=== PATIENT | female | born 1940 | race Caucasian/White ===

== ENCOUNTER 2017-08-11 14:50 | Emergency (ER) | payer OTHER, BC ==
[2017-08-11 15:05] VITALS: BMI 24.1
--- NOTE | 2017-08-11 15:34 | PDOC ---
Attending Attestation - Resident Resident Name: Edward Flower - ED Attending Attestation I have performed the following: I have examined & evaluated the patient, The case was reviewed & discussed with the resident, I agree w/resident's findings & plan, Exceptions are as noted - HPI HPI: 08/11/17 15:36 77yo F denies PMH p/w abd pain x [address] Mark last week for RLQ pain radiating to her R back. He prescribed her prednisone and naproxen 500mg BID which she has taken BID for the last 5 days. While the RLQ pain resolved with the prednisone, she began to experience burning epigastric pain for 2 days ago a/w nausea. She reports she was unable to eat dinner last night. She was given mylanta and protonix by Dr. Gil but did not take them yet. Denies fevers, chills. No vomiting or diarrhea. Last BM this morning was normal. Denies abd surgeries. Takes neurontin for neuropathy BID. - Physicial Exam PE: 08/11/17 15:41 GENERAL: Awake, alert, and fully oriented, in no acute distress HEAD: No signs of trauma EYES: PERRLA, EOMI, sclera anicteric, conjunctiva clear ENT: Auricles normal inspection, hearing grossly normal, nares patent, oropharynx clear without exudates. Moist mucosa NECK: Normal ROM, supple, no lymphadenopathy, JVD, or masses LUNGS: Breath sounds equal, clear to auscultation bilaterally. No wheezes, and no crackles HEART: Regular rate and rhythm, normal S1 and S2, no murmurs, rubs or gallops ABDOMEN: Soft, +RLQ and epigastric ttp, normoactive bowel sounds. No guarding, no rebound. No masses EXTREMITIES: Normal range of motion, no edema. No clubbing or cyanosis. No cords, erythema, or tenderness NEUROLOGICAL: Normal speech, cranial nerves intact, negative pronator drift, 5/ 5 strength in all 4 extremities, normal sensation to light touch in all 4 extremities, normal cerebellar exam, normal gait, normal reflexes and tone SKIN: Warm, Dry, normal turgor, no rashes or lesions noted. - Medical Decision Making 08/11/17 16:33 77-year-old female presents with 1 week of right lower quadrant pain that resolved with naproxen and prednisone followed by 2 days of epigastric pain status post taking naproxen. Vitals are unremarkable. Exam remarkable for right lower quadrant and epigastric tenderness to palpation. Differential for RLQ includes appendicitis versus colitis versus renal colic. Differential for epigastric pain includes gastritis 2/2 NSAID use vs pancreatitis vs cholecystitis. Plan: -labs -UA -CTAP -pain control/antiemetics -EKG pt signed out to Dr. Blue for further eval and management. Heart Score/ECG Review #1 08/11/17 16:46 Twelve-lead EKG was performed and reviewed by me. Sinus analilia, rate 54, normal axis, TW flattening avL and V3. No DONNELL
[2017-08-11 15:44] LABS: BASOPHIL 0.8 % (0-2.0); MCH 30.8 pg (25.7-33.7); MCHC 33.4 g/dl (32.0-36.0); MEAN CELL VOLUME 92.2 fl (80-96); MEAN PLT VOLUME 7.2 fl (7.5-11.1); NEUTROPHILS 53.6 % (42.8-82.8); PLATELET COUNT 241 K/MM3 (134-434); RDW 13.5 % (11.6-15.6); WHITE BLOOD COUNT 8.7 K/mm3 (4.0-10.0)
[2017-08-11 15:58] LABS: URINE APPEARANCE CLEAR; URINE BILIRUBIN NEGATIVE (NEGATIVE); URINE BLOOD NEGATIVE (NEGATIVE); URINE COLOR LTYELLOW; URINE GLUCOSE (UA) NEGATIVE (NEGATIVE); URINE KETONE NEGATIVE (NEGATIVE); URINE LEUK ESTERASE NEGATIVE (NEGATIVE); URINE NITRITE NEGATIVE (NEGATIVE); URINE PROTEIN NEGATIVE (NEGATIVE); URINE UROBILINOGEN NEGATIVE mg/dL (0.2-1.0)
--- NOTE | 2017-08-11 16:10 | PDOC ---
History of Present Illness - General Chief Complaint: Pain Stated Complaint: PHYSICIAN REFERRED Time Seen by Provider: 08/11/17 15:08 History Source: Patient Exam Limitations: No Limitations - History of Present Illness Initial Comments: 08/11/17 16:08 The patient is a 77 year old female, with no significant past medical history who presents to the emergency department with abdominal pain x 2 days. Patient had severe rlq pain 1 week ago radiating to the flank. Patient had no urinary sx at that time. She went to her PCP who gave her prednisone and naproxen. She took the naproxen BID for 5 days. She began having 10/, epigastric, burning, non radiating pain 2 days ago. She went to her PCP on 08/09 who gave her a rx for mylanta and protonix, which she has not taken. She endorses nausea, decreased appetite. The patient denies chest pain, shortness of breath, headache and dizziness. Denies fever, chills, vomit, diarrhea and constipation. Denies dysuria, frequency, urgency and hematuria. Allergies: NKDA Past surgical history: None Social history: Denies any smoking, drugs, alcohol use PMD - Dr. Corona Past History - Past Medical History Allergies/Adverse Reactions: Allergies Allergy/AdvReac Type Severity Reaction Status Date / Time No Known Allergies Allergy Verified 08/11/17 15:02 Home Medications: Ambulatory Orders Gabapentin [Neurontin] 300 mg PO BID 02/14/14 Ascorbate Calcium [Vitamin C] 500 mg PO DAILY 09/02/16 Calcium Carb/Magnesium Ox,Carb [Sonu-Mag Tablet Chewable] 1 each PO DAILY Cholecalciferol (Vitamin D3) [Vitamin D -] 400 unit PO DAILY 09/02/16 Cyanocobalamin (Vitamin B-12) [Vitamin B12] 2,500 mcg PO DAILY 09/02/16 Multivitamins [Multivit ([facility] Formulary)] 1 tab PO DAILY 09/02/16 Mag Hydrox/Al Hydrox/Simeth [Mylanta *Suspension*] 30 ml PO ONCE PRN 08/11/17 Pantoprazole Sodium 40 mg PO DAILY 08/11/17 Anemia: (VITAMIN B12 DEFICIENCY) Asthma: No Cancer: No Cardiac Disorders: No CVA: No COPD: (CHRONIC BRONCHITIS;PNEUMONIA) CHF: No Dementia: No Diabetes: No GI Disorders: Yes (COLON ADENOMAS;DIVERTICULOSIS) Disorders: No HTN: No Hypercholesterolemia: No Liver Disease: No Seizures: No Thyroid Disease: No Other medical history: back problems - Surgical History Abdominal Surgery: No Appendectomy: No Cardiac Surgery: No Cholecystectomy: No Lung Surgery: No Neurologic Surgery: No Orthopedic Surgery: Yes (RIGHT KNEE SURGERY 2001) - Suicide/Smoking/Psychosocial Hx Smoking History: Former smoker Have you smoked in the past 12 months: No If you are a former smoker, when did you quit?: 1972 Information on smoking cessation initiated: No Hx Alcohol Use: No Drug/Substance Use Hx: No Substance Use Type: None Review of Systems - Review of Systems Comments:: 08/11/17 16:08 GENERAL/CONSTITUTIONAL: No fever or chills. No weakness. HEAD, EYES, EARS, NOSE AND THROAT: No change in vision. No ear pain or discharge. No sore throat. CARDIOVASCULAR: No chest pain or shortness of breath RESPIRATORY: No cough, wheezing, or hemoptysis. GASTROINTESTINAL: No vomiting, diarrhea or constipation. +Nausea, +RLQ and Epigastric abdominal pain GENITOURINARY: No dysuria, frequency, or change in urination. MUSCULOSKELETAL: No joint or muscle swelling or pain. No neckpain. +Right flank pain SKIN: No rash NEUROLOGIC: No headache, vertigo, loss of consciousness, or change in strength/ sensation. ENDOCRINE: No increased thirst. No abnormal weight change HEMATOLOGIC/LYMPHATIC: No anemia, easy bleeding, or history of blood clots. ALLERGIC/IMMUNOLOGIC: No hives or skin allergy. *Physical Exam - Vital Signs Last Vital Signs Temp Pulse Resp BP Pulse Ox 98.6 F 66 18 113/68 97 08/11/17 15:02 08/11/17 15:02 08/11/17 15:02 08/11/17 15:02 08/11/17 15:02 - Physical Exam Comments: 08/11/17 16:09 GENERAL: Awake, alert, and fully oriented, in no acute distress HEAD: No signs of trauma, normocephalic, atraumatic EYES: PERRLA, EOMI, sclera anicteric, conjunctiva clear ENT: Auricles normal inspection, hearing grossly normal, nares patent, oropharynx clear without exudates. Moist mucosa NECK: Normal ROM, supple, no lymphadenopathy, JVD, or masses LUNGS: No distress, speaks full sentences, clear to auscultation bilaterally HEART: Regular rate and rhythm, normal S1 and S2, no murmurs, rubs or gallops, peripheral pulses normal and equal bilaterally. ABDOMEN: Soft, +Epigastric and RLQ tenderness to palpation, normoactive bowel sounds. No guarding, no rebound. No masses, +Right CVA tenderness EXTREMITIES: Normal inspection, Normal range of motion, no edema. No clubbing or cyanosis. NEUROLOGICAL: Cranial nerves II through XII grossly intact. Normal speech, normal gait, no focal sensorimotor deficits SKIN: Warm, Dry, normal turgor, no rashes or lesions noted. 08/11/17 16:50 ED Treatment Course - LABORATORY CBC & Chemistry Diagram: 08/11/17 15:34 08/11/17 15:34 - ADDITIONAL ORDERS Additional order review: 08/11/17 15:34 RBC 4.24 MCV 92.2 MCHC 33.4 RDW 13.5 MPV 7.2 L Neutrophils % 53.6 Lymphocytes % 35.8 Monocytes % 8.8 Eosinophils % 1.0 Basophils % 0.8 Medical Decision Making - Medical Decision Making 08/11/17 16:34 77 y.o. F with no pmh presenting with epigastric and rlq abdominal pain. Plan: CBC, CMP, Lipase, EKG, UA, CT abd/pelvis w/ PO and IV contrast, Zofran, pain control 08/11/17 16:35 CBC, CMP, lipase unremarkable 08/11/17 16:42 EKG- Sinus bradycardia, possible left atrial enlargement, Incomplete RBBB, HR- 54, QTc-419 08/11/17 16:45 UA- negative *DC/Admit/Observation/Transfer Diagnosis at time of Disposition: Abdominal pain Qualifiers: Abdominal location: right lower quadrant Qualified Code(s): R10.31 - Right lower quadrant pain - Discharge Dispostion Disposition: HOME Condition at time of disposition: Improved - Referrals Referrals: William Gil MD [Primary Care Provider] - - Patient Instructions Printed Discharge Instructions: DI for Abdominal Pain-Adult Additional Instructions: Return to the emergency department immediately with ANY new, persistent or worsening symptoms including worsening abdominal pain, fevers, inability to tolerate oral intake, chest pain, shortness of breath or any other concerns. Stay well hydrated. You MUST call and follow up with your doctor tomorrow. Your emergency department visit is not complete without a followup with your doctor for reevaluation. Please make sure your doctor reviews the results of your emergency evaluation. Print Language: JAMAICAN
[2017-08-11 16:14] LABS: ALBUMIN 3.5 g/dl (3.4-5.0); ANION GAP 8 (8-16); BILIRUBIN,TOTAL 0.5 mg/dL (0.2-1.0); CALCIUM 8.7 mg/dL (8.5-10.1); CO2 28 mmol/L (21-32); CREATININE 0.5 mg/dL (0.55-1.02); GLUCOSE,RANDOM 85 mg/dL (74-106); SGOT/AST 13 U/L (15-37); SGPT/ALT 18 U/L (12-78); TOT PROT 6.3 g/dl (6.4-8.2)
[2017-08-11 16:15] LABS: ALK PHOS 62 U/L (45-117)
[2017-08-11] MEDS ORDERED: PANTOPRAZOLE SODIUM 40 MG in SODIUM CHLORIDE 100 ML IVPB ONE (16:29)
[2017-08-11] MEDS ORDERED: ONDANSETRON 4 MG/2 ML VIAL IVPUSH ONE (16:29)
[2017-08-11] MEDS ORDERED: PANTOPRAZOLE SODIUM 100 ML IVPB ONE (17:04)
[2017-08-11] MEDS ORDERED: ONDANSETRON 4 MG/2 ML VIAL ONE (17:05)
[2017-08-11 19:01] VITALS: BP 129/67; PULSE 63; TEMP 98.3
--- NOTE | 2017-08-11 20:36 | PDOC ---
*Physical Exam - Vital Signs Last Vital Signs Temp Pulse Resp BP Pulse Ox 98.3 F 63 19 129/67 97 08/11/17 18:59 08/11/17 18:59 08/11/17 18:59 08/11/17 18:59 08/11/17 15:02 ED Treatment Course - LABORATORY CBC & Chemistry Diagram: 08/11/17 15:34 08/11/17 15:34 - ADDITIONAL ORDERS Additional order review: Laboratory Results 08/11/17 08/11/17 15:34 15:34 Sodium 140 Potassium 4.1 Chloride 104 Carbon Dioxide 28 Anion Gap 8 BUN 14 Creatinine 0.5 L Creat Clearance w eGFR > 60 Random Glucose 85 Calcium 8.7 Total Bilirubin 0.5 AST 13 L ALT 18 Alkaline Phosphatase 62 Total Protein 6.3 L Albumin 3.5 Lipase 107 Urine Color Ltyellow Urine Appearance Clear Urine pH 5.0 Urine Protein Negative Urine Glucose (UA) Negative Urine Ketones Negative Urine Blood Negative Urine Nitrite Negative Urine Bilirubin Negative Urine Urobilinogen Negative 08/11/17 15:34 RBC 4.24 MCV 92.2 MCHC 33.4 RDW 13.5 MPV 7.2 L Neutrophils % 53.6 Lymphocytes % 35.8 Monocytes % 8.8 Eosinophils % 1.0 Basophils % 0.8 - Medications Given in the ED: ED Medications Discontinued Medications Generic Name Dose Route Start Last Admin Trade Name Joann PRN Reason Stop Dose Admin Pantoprazole Sodium 40 mg/ 100 mls @ 200 mls/hr 08/11/17 16:29 08/11/17 17:13 Sodium Chloride IVPB 08/11/17 16:58 200 mls/hr ONCE ONE Administration Ondansetron HCl 4 mg 08/11/17 16:29 08/11/17 17:13 Zofran Injection IVPUSH 08/11/17 16:30 4 mg ONCE ONE Administration Medical Decision Making - Medical Decision Making 08/11/17 20:57 Pt signed out to me from Dr. Molina at approximately 5pm. Pt is here for several days of RLQ pain with occasional R flank pain, was originally treated by PMD for suspected MSK cause. Pt hda labs and UA here that was essentially unremarkable. was pending a CT and reasssessment. pt feeling improved, has been ambulating around the ED the past hour asking the nurse when she could go home. ct abd was negative for acute pathology. She is feeling better abd reassessed and is soft nontender denies nausea currently. requesting to go home. Return precautions for any recurrent or worsening symptoms. will dc with pmd fu return precautions were discussed I discussed the physical exam findings, ancillary test results and final diagnoses with the patient. I answered all of the patient's questions. The patient was satisfied with the care received and felt comfortable with the discharge plan and treatment plan. The patient will call their primary care physician within 24 hours to arrange follow-up and will return to the Emergency Department with any new, persistent or worsening symptoms. *DC/Admit/Observation/Transfer Diagnosis at time of Disposition: Abdominal pain Qualifiers: Abdominal location: right lower quadrant Qualified Code(s): R10.31 - Right lower quadrant pain - Discharge Dispostion Disposition: HOME Condition at time of disposition: Improved Admit: No - Referrals Referrals: William Gil MD [Primary Care Provider] - - Patient Instructions Printed Discharge Instructions: DI for Abdominal Pain-Adult Additional Instructions: Return to the emergency department immediately with ANY new, persistent or worsening symptoms including worsening abdominal pain, fevers, inability to tolerate oral intake, chest pain, shortness of breath or any other concerns. Stay well hydrated. You MUST call and follow up with your doctor tomorrow. Your emergency department visit is not complete without a followup with your doctor for reevaluation. Please make sure your doctor reviews the results of your emergency evaluation. Print Language: BRAZILIAN
--- NOTE | 2017-08-12 13:01 | EKG ---
Test Reason : Blood Pressure : / mmHG Vent. Rate : 054 BPM Atrial Rate : 054 BPM P-R Int : 154 ms QRS Dur : 092 ms QT Int : 442 ms P-R-T Axes : 057 034 056 degrees QTc Int : 419 ms SINUS BRADYCARDIA POSSIBLE LEFT ATRIAL ENLARGEMENT INCOMPLETE RIGHT BUNDLE BRANCH BLOCK NONSPECIFIC T WAVE ABNORMALITY ABNORMAL ECG WHEN COMPARED WITH ECG OF 17-DEC-2009 11:32, NO SIGNIFICANT CHANGE WAS FOUND Confirmed by ELY RUIZ MD ([id number]) on 08/12/2017 1:01:38 PM Referred By: Confirmed By:ELY RUIZ MD
== END 2017-08-11 21:04 | disposition home or self-care (01) ==
LOC: JER 14:50
PROC: 3E033GC Introduction of Other Therapeutic Substance into Peripheral Vein, Percutaneous Approach (ICD-10-PCS; principal; 2017-08-11)
DX: R10.31 Right lower quadrant pain (principal); J42 Unspecified chronic bronchitis; E53.8 Deficiency of other specified B group vitamins; Z87.19 Personal history of other diseases of the digestive system
CPT/HCPCS: 36415; 74177-TC; 80053; 81003; 83690; 85025; 93005; 93010; 96365; 96375; 99283-25; Q9967

== ENCOUNTER 2017-10-20 10:23 | Day surgery (SDC) | payer OTHER, BC ==
[2017-10-19 09:40] VITALS: BMI 23.6
[2017-10-20] MEDS ORDERED: PROPOFOL 20 ML ONE (11:28)
[2017-10-20 12:23] VITALS: TEMP 97.5
[2017-10-20 13:33] VITALS: BP 118/70; PULSE 73
--- NOTE | 2017-10-23 11:43 | PATH ---
Surgical Pathology Report Patient Name: CRISTA DORMAN [facility]. Rec. #: [id number] /Age/Gender: 1940 (Age: 77) / F Account: [id number] Location: U-ENDOSCOPY Taken: 10/20/2017 Received: 10/20/2017 Reported: 10/23/2017 Physicians: Giuseppe Miller M.D. Specimen(s) Received A: BX 2ND PORTION DUODENUM AND BULB B: BX ANTRUM-ATROPHIC AND EROSIVE GASTRITIS Clinical History Preoperative diagnosis: Abdominal pain, rule out ulcer Postoperative diagnosis: Hiatal hernia, gastritis Final Diagnosis A. DUODENUM, SECOND PORTION AND BULB, BIOPSY: DUODENAL MUCOSA WITH ROSMERY GLAND HYPERPLASIA AND MILD NONSPECIFIC CHRONIC DUODENITIS. NO HISTOLOGIC EVIDENCE OF GLUTEN SENSITIVE ENTEROPATHY (CELIAC SPRUE) IDENTIFIED. B. STOMACH, ANTRUM, BIOPSY: SEVERE CHRONIC ACTIVE GASTRITIS. IMMUNOSTAIN FOR H. PYLORI IS POSITIVE (MANY ORGANISMS). Electronically Signed Jules Elliott M.D. Gross Description A. Received in formalin, labeled "biopsy second portion of duodenum and bulb" are 4 russ, irregular portions of soft tissue ranging from 0.2-0.5 cm. in greatest dimension. The specimens are submitted in toto in one cassette. B. Received in formalin, labeled "biopsy antrum" are 4 russ, irregular portions of soft tissue ranging from 0.3-0.5 cm. in greatest dimension. The specimens are submitted in toto in one cassette. 10/20/201710/20/2017
== END 2017-10-20 13:35 | disposition home or self-care (01) ==
LOC: JASU-ENDO 10:23
PROVIDERS: ATTEND Internal Medicine Gastroenterology
PROC: 0DB68ZX Excision of Stomach, Via Natural or Artificial Opening Endoscopic, Diagnostic (ICD-10-PCS; 2017-10-20)
PROC: 0DB98ZX Excision of Duodenum, Via Natural or Artificial Opening Endoscopic, Diagnostic (ICD-10-PCS; principal; 2017-10-20 11:30)
DX: K25.9 Gastric ulcer, unspecified as acute or chronic, without hemorrhage or perforation (principal); K44.9 Diaphragmatic hernia without obstruction or gangrene
CPT/HCPCS: 88305-TC; 88342-TC

== ENCOUNTER 2018-04-03 17:07 | Inpatient (IN) | payer OTHER, BC ==
--- NOTE | 2018-04-03 17:19 | PDOC ---
Rapid Medical Evaluation Time Seen by Provider: 04/03/18 17:11 Medical Evaluation: Allergies Allergy/AdvReac Type Severity Reaction Status Date / Time No Known Allergies Allergy Verified 08/11/17 15:02 04/03/18 17:13 Pt states she was sent by her PCP for shingles to the vaginal area. States that she has been throwing up after taking the valtrex. Dr. Joyce Jones is her DONOR SPECIALIST. Dr. Gil PCP Exam: No acute distress, ambulatory, afebrile Orders: UA, Urine culture Pt. to proceed to ED for further evaluation.
[2018-04-03 17:20] VITALS: BMI 23.6
[2018-04-03] MEDS ORDERED: ACYCLOVIR IVPB ONE (17:33)
[2018-04-03] MEDS ORDERED: DEXTROSE 5% IVPB ONE (17:33)
[2018-04-03] MEDS ORDERED: WATER IVPB ONE (17:33)
--- NOTE | 2018-04-03 17:38 | PDOC ---
History of Present Illness - General Chief Complaint: Rash Stated Complaint: PCP SENT Time Seen by Provider: 04/03/18 17:11 History Source: Patient Exam Limitations: No Limitations - History of Present Illness Initial Comments: 04/03/18 18:47 Best Contact:[phone] PCP: Dr. Louise Vásquez (ASSOCIATE PROFESSOR OF COMMUNICATION) [phone] Pmhx: N/A Pshx: Unknown gynecological procedure Allergies:NKDA FH:N/A Social Hx: Ciarettes/ 0 Alcohol/ 0 Drugs/0 04/03/18 18:57 78-year-old female presents to the emergency department for admission due to shingles to the labia and proximal thigh. Patient was diagnosed and seen yesterday by her dwarf tree grower from [facility] and was placed on Valtrex. Patient states she took her first dose last evening causing her to vomit twice. Patient again took a dose of Valtrex this morning which caused some nausea and eventually vomited. Patient saw her PMD who referred her to the emergency department for admission/IV acyclovir and ID consultation. Patient denies fever , chills, nausea/vomiting, headache, dizziness, lightheadedness, facial pain, neck/back pains, chest pain, shortness of breath, abdominal pains, urinary symptoms. Past History - Past Medical History Allergies/Adverse Reactions: Allergies Allergy/AdvReac Type Severity Reaction Status Date / Time No Known Allergies Allergy Verified 04/03/18 17:18 Home Medications: Ambulatory Orders Gabapentin [Neurontin] 300 mg PO BID 02/14/14 Ascorbate Calcium [Vitamin C] 500 mg PO DAILY 09/02/16 Calcium Carb/Magnesium Ox,Carb [Sonu-Mag Tablet Chewable] 1 each PO DAILY Cholecalciferol (Vitamin D3) [Vitamin D -] 400 unit PO DAILY 09/02/16 Multivitamins [Multivit ([facility] Formulary)] 1 tab PO DAILY 09/02/16 Mag Hydrox/Al Hydrox/Simeth [Mylanta Oral Suspension -] 30 ml PO ONCE PRN Mag Carb/Aluminum Hydrox/Algin [Gaviscon Liquid] 355 ml PO Q4H PRN #0 oral.susp 10/20/17 Pantoprazole Sodium [Protonix -] 40 mg PO DAILY #30 tablet.ec 10/20/17 Pantoprazole Sodium 40 mg PO DAILY #90 tablet. 10/23/17 Anemia: (VITAMIN B12 DEFICIENCY) Asthma: No Cancer: No Cardiac Disorders: No CVA: No COPD: Yes (CHRONIC BRONCHITIS;PNEUMONIA) CHF: No Dementia: No Diabetes: No GI Disorders: Yes (COLON ADENOMAS;DIVERTICULOSIS) Disorders: No HTN: No Hypercholesterolemia: No Liver Disease: No Seizures: No Thyroid Disease: No - Surgical History Abdominal Surgery: No Appendectomy: No Cardiac Surgery: No Cholecystectomy: No Lung Surgery: No Neurologic Surgery: No Orthopedic Surgery: Yes (RIGHT KNEE SURGERY 2001) - Suicide/Smoking/Psychosocial Hx Smoking History: Former smoker Have you smoked in the past 12 months: No If you are a former smoker, when did you quit?: 1972 Information on smoking cessation initiated: No Hx Alcohol Use: No Drug/Substance Use Hx: No Substance Use Type: None Hx Substance Use Treatment: No Review of Systems - Review of Systems Able to Perform ROS?: Yes Comments:: 04/03/18 18:54 CONSTITUTIONAL: Absent: fever, chills, diaphoresis, generalized weakness, malaise, loss of appetite HEENT: Absent: rhinorrhea, nasal congestion, throat pain, throat swelling, difficulty swallowing, mouth swelling, ear pain, eye pain, visual Changes CARDIOVASCULAR: Absent: chest pain, loss of consciousness, palpitations, irregular heart rate, peripheral edema RESPIRATORY: Absent: cough, shortness of breath, dyspnea with exertion, orthopnea, wheezing, stridor, hemoptysis GASTROINTESTINAL: Absent: abdominal pain, abdominal distension, nausea, vomiting, diarrhea, constipation, melena, hematochezia GENITOURINARY: Absent: dysuria, frequency, urgency, hesitancy, hematuria, flank pain, genital pain MUSCULOSKELETAL: Absent: myalgia, arthralgia, joint swelling Shingles rash to mon pubis traveling posterior to the entire left labia and posterior proximal thigh to the lateral proximal thigh +pain Absent: rash, itching, pallor HEMATOLOGIC/IMMUNOLOGIC: Absent: easy bleeding, easy bruising, lymphadenopathy, frequent infections ENDOCRINE: Absent: unexplained weight gain, unexplained weight loss, heat intolerance, cold intolerance NEUROLOGIC: Absent: headache, focal weakness or paresthesias, dizziness, unsteady gait, seizure, mental status changes, bladder or bowel incontinence PSYCHIATRIC: Absent: anxiety, depression, suicidal or homicidal ideation, hallucinations. 04/03/18 18:55 Is the patient limited Chinese proficient: No *Physical Exam - Vital Signs Last Vital Signs Temp Pulse Resp BP Pulse Ox 99.0 F 78 18 101/61 97 04/03/18 17:15 04/03/18 17:15 04/03/18 17:15 04/03/18 17:15 04/03/18 17:15 - Physical Exam Comments: 04/03/18 18:56 GENERAL: Well developed, well nourished. Awake and alert. No acute distress. HEENT: Normocephalic, atraumatic. PERRLA, EOMI. No conjunctival pallor. Sclera are non- icteric. Moist mucous membranes. Oropharynx is clear. NECK: Supple. Full ROM. No JVD. Carotid pulses 2+ and symmetric, without bruits. No thyromegaly. No lymphadenopathy. CARDIOVASCULAR: Regular rate and rhythm. No murmurs, rubs, or gallops. Distal pulses are 2+ and symmetric. PULMONARY: No evidence of respiratory distress. Lungs clear to auscultation bilaterally. No wheezing, rales or rhonchi. ABDOMINAL: Soft. Non-tender. Non-distended. No rebound or guarding. No organomegaly. Normoactive bowel sounds. MUSCULOSKELETAL Normal range of motion at all joints. No bony deformities or tenderness. No CVA tenderness. EXTREMITIES: No cyanosis. No clubbing. No edema. No calf tenderness. SKIN: Pustules erythematous mons pubis traveling posteriorly to the entire left labia wrapping around the posterior left proximal thigh to the lateral region Warm and dry. Normal capillary refill. No rashes. No jaundice. NEUROLOGICAL: Alert, awake, appropriate. Cranial nerves 2-12 intact. No deficits to light touch and temperature in face, upper extremities and lower extremities. No motor deficits in the in face, upper extremities and lower extremities. Normoreflexic in the upper and lower extremities. Normal speech. Toes are down- going bilaterally. Gait is normal without ataxia. PSYCHIATRIC: Cooperative. Good eye contact. Appropriate mood and affect. Moderate Sedation - Procedure Monitoring Vital Signs: Vital Signs Temp Pulse Resp BP Pulse Ox 99.0 F 78 18 101/61 97 04/03/18 17:15 04/03/18 17:15 04/03/18 17:15 04/03/18 17:15 04/03/18 17:15 ED Treatment Course - RADIOLOGY Radiology Studies Ordered: Category Date Time Status CHEST PA & LAT [RAD] Stat Radiology 04/03/18 17:31 Ordered *DC/Admit/Observation/Transfer Diagnosis at time of Disposition: Shingles rash Qualifiers: Herpes zoster complications: disseminated zoster Qualified Code(s): B02.7 - Disseminated zoster - Discharge Dispostion Condition at time of disposition: Guarded Decision to Admit order: Yes - Referrals Referrals: William Gil MD [Primary Care Provider] - - Patient Instructions - Post Discharge Activity Progress Note - Progress Note Progress Note: 1703hrs: Spoke to Dr. Gil/pt's PMD who states will admit pt and req Dr. Jess Amado/Infectious Disease to consult 1717hrs: Spoke to Dr. Valdes/ID, req acyclovir 10mg/kg with chitinous IV fluids 1811hrs: Called Dr. Joyce Vásquez [phone]/ ASSOCIATE PROFESSOR OF COMMUNICATION
[2018-04-03] MEDS ORDERED: ACYCLOVIR INJECTION 560 MG in DEXTROSE 5%-WATER - 100 ML IVPB ONE (17:41)
[2018-04-03] MEDS ORDERED: SODIUM CHLORIDE 1,000 ML IV SCH (17:45)
[2018-04-03] MEDS ORDERED: morphine CARPU-JECT 2 MG/1 ML DISP.SYRIN IVPUSH ONE (18:48)
[2018-04-03] MEDS ORDERED: ONDANSETRON 4 MG/2 ML VIAL IVPUSH ONE (18:48)
[2018-04-03 19:11] LABS: BASO % 0.7 % (0-2.0); EOS % 0.1 % (0-4.5); HEMATOCRIT 40.2 % (32.4-45.2); HEMOGLOBIN 13.3 GM/dL (10.7-15.3); LYMPH % 23.9 % (8-40); MCH 30.3 pg (25.7-33.7); MCHC 33.1 g/dl (32.0-36.0); MEAN CELL VOLUME 91.5 fl (80-96); MEAN PLT VOLUME 7.3 fl (7.5-11.1); MONO % 11.8 % (3.8-10.2); NEUT % 63.5 % (42.8-82.8); PLATELET COUNT 150 K/MM3 (134-434); RDW 13.2 % (11.6-15.6); WHITE BLOOD COUNT 3.9 K/mm3 (4.0-10.0)
[2018-04-03 19:46] LABS: ALBUMIN 3.3 g/dl (3.4-5.0); ALK PHOS 66 U/L (45-117); ANION GAP 7 (8-16); BILIRUBIN,TOTAL 0.4 mg/dL (0.2-1.0); BLOOD UREA NITROGEN 8 mg/dL (7-18); CALCIUM 8.3 mg/dL (8.5-10.1); CHLORIDE 99 mmol/L (98-107); CO2 30 mmol/L (21-32); CREATININE 0.6 mg/dL (0.55-1.02); GLUCOSE,RANDOM 106 mg/dL (74-106); POTASSIUM 3.8 mmol/L (3.5-5.1); SGOT/AST 19 U/L (15-37); SGPT/ALT 18 U/L (12-78); SODIUM 136 mmol/L (136-145); TOT PROT 6.3 g/dl (6.4-8.2)
[2018-04-03] MEDS ORDERED: MAG HYDROX/AL HYDROX/SIMETH 30 ML UNIT-DOSE CUP PO ONE (19:52)
[2018-04-03] MEDS ORDERED: ONDANSETRON 4 MG/2 ML VIAL IVPUSH PRN (19:55)
[2018-04-03] MEDS ORDERED: MULTIVITAMINS (DAILY MVI) TABLET (FP) PO SCH (20:00)
[2018-04-03] MEDS ORDERED: LACTATED RINGERS SOLUTION 1,000 ML/1,000 ML INFUS.BAG IV SCH (20:00)
[2018-04-03] MEDS ORDERED: morphine SULFATE 4 MG/ML VIAL IVPUSH PRN (20:02)
--- NOTE | 2018-04-03 20:02 | HP ---
Admitting History and Physical - Admission Chief Complaint: 78 y.o F presented to er WITH SEVERE LEFT BUTTOCK, THIGH, PUBIS AND LABIA PAIN, ERYTHEMA WITH BLISTERS, UNABLE TO TOLERATE ANY ORAL FLUIDS OR MEDS AND VOMITING SEVERAL TIMES YESTERDAY AND TODAY. 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 History of Present Illness: RADICULOPATHY, KNEE MENISCUS TEAR DIVERTICULOSIS UTI'S History Source: Patient Limitations to Obtaining History: No Limitations - Past Medical History Pulmonary: Yes: Other (CHRONIC COGH). No: Asthma, Bronchitis, Cancer, COPD, O2 Dependent, Pneumonia, Previously Intubated, Pulmonary Embolus, Pulmonary Fibrosis, Sleep Apnea Gastrointestinal: Yes: Diverticulitis Hepatobiliary: No: Cirrhosis, Cholelithiasis, Cholecystitis, Choledocholithiasis , Hepatitis A, Hepatitis B, Hepatitis C, Other Renal/: Yes: Renal Calculi Reproductive: Yes: Postmenopausal Infectious Disease: No: AIDS, C-Diff, Herpes Zoster, HIV, MRSA, STD's, Tuberculosis, VREF, Other Psych: No: Addictions, Anxiety, Bipolar, Depression, Panic, Psychosis, Schizophrenia, Other Musculoskeletal: Yes: Chronic low back pain, Osteoarthritis Rheumatology: No: Fibromyalgia, Gout, Lupus, Rheumatoid Arthritis, Sarcoidosis, Vasculitis, Other ENT: No: Allergic Rhinitis, Sinusitis, Other Endocrine: No: [place]'s Disease, Irina's Disease, Diabetes Insipidus, Diabetes Mellitus, Hyperparathyroidism, Hyperthyroidism, Hypothyroidism, Osteopenia, SIADH, Other Dermatology: Yes: Other (SEBORRHEIC KERATOSIS) - Smoking History Smoking history: Former smoker Have you smoked in the past 12 months: No If you are a former smoker, when did you quit?: 1972 - Alcohol/Substance Use Hx Alcohol Use: No Home Medications - Allergies Allergies/Adverse Reactions: Allergies Allergy/AdvReac Type Severity Reaction Status Date / Time No Known Allergies Allergy Verified 04/03/18 17:18 - Home Medications Home Medications: Ambulatory Orders Gabapentin [Neurontin] 300 mg PO BID 02/14/14 Ascorbate Calcium [Vitamin C] 500 mg PO DAILY 09/02/16 Calcium Carb/Magnesium Ox,Carb [Sonu-Mag Tablet Chewable] 1 each PO DAILY Cholecalciferol (Vitamin D3) [Vitamin D -] 400 unit PO DAILY 09/02/16 Multivitamins [Multivit ([facility] Formulary)] 1 tab PO DAILY 09/02/16 Mag Hydrox/Al Hydrox/Simeth [Mylanta Oral Suspension -] 30 ml PO ONCE PRN Mag Carb/Aluminum Hydrox/Algin [Gaviscon Liquid] 355 ml PO Q4H PRN #0 oral.susp 10/20/17 Pantoprazole Sodium [Protonix -] 40 mg PO DAILY #30 tablet.ec 10/20/17 Pantoprazole Sodium 40 mg PO DAILY #90 tablet. 10/23/17 Family Disease History - Family Disease History Family History: Unremarkable Review of Systems - Review of Systems Constitutional: reports: Loss of Appetite Eyes: denies: No Symptoms, Blind Spots, Blurred Vision, Double Vision, Eye Pain , Floaters, Photophobia, Recent Change in Vision, Other HENT: denies: No Symptoms, Difficult Swallowing, Ear Discharge, Ear Pain, Epistaxis, Gingival Bleeding, Hearing Loss, Mouth Swelling, Nasal Congestion, Ocular Prosthesis, Throat Pain, Toothache, Ringing in Ears, Other Neck: denies: No Symptoms, Decreased ROM, Lumps, Pain on Movement, Stiffness, Swollen Glands, Tenderness, Other Cardiovascular: denies: No Symptoms, Chest Pain, Edema, Palpitations, Shortness of Breath, Other Respiratory: denies: No Symptoms, Cough, Exercise Intolerance, Hemoptysis, Orthopnea, PND, Snoring, SOB, SOB on Exertion, Wheezing, Other Genitourinary: denies: No Symptoms, Burning, Discharge, Dysuria, Flank Pain, Frequency, Hematuria, Incontinence, Lesions, Menses, Pain, Testicular Mass, Testicular Pain, Testicular Swelling, Urgency, Vaginal Bleeding, Other Breasts: denies: No Symptoms Reported, See HPI, Breast Implants, Discharge from Nipple, Lumps, Pain, Skin Changes, Other Musculoskeletal: reports: Back Pain Integumentary: reports: Blister, Erythema Neurological: denies: Change in LOC, Change in Speech, Confusion, Dizziness, Headache, Incoordination, Seizure, Syncope, Tremors, Unsteady Gait Endocrine: denies: No Symptoms, Excessive Sweating, Flushing, Increased Hunger, Increased Thirst, Intolerance to Cold, Intolerance to Heat, Unexplained Weight Gain, Unexplained Weight Loss, Other Hematology/Lymphatic: denies: No Symptoms, Easily Bruised, Excessive Bleeding, Swollen Glands, Other Psychiatric: denies: No Symptoms, Altered Sleep Pattern, Anxiety, Depression, Hallucinations, Panic, Paranoia, Suicidal, Other Pain Intensity: 10 Physical Examination Vital Signs: Vital Signs Temperature 99.0 F 04/03/18 17:15 Pulse Rate 78 04/03/18 17:15 Respiratory Rate 18 04/03/18 17:15 Blood Pressure 101/61 04/03/18 17:15 O2 Sat by Pulse Oximetry (%) 97 04/03/18 17:15 Constitutional: Yes: Anxious, Moderate Distress. No: Obese Eyes: Yes: Conjunctiva Clear, EOM Intact, PERRL HENT: Yes: Normocephalic. No: Drooling, Epistaxis, Hoarseness, Pharyngeal Erythema, Tonsillar Exudate Neck: Yes: Supple, Trachea Midline. No: Decreased ROM, Lymphadenopathy Cardiovascular: Yes: Regular Rate and Rhythm, S1, S2. No: Bradycardia, Tachycardia, Bruit, JVD, Murmur Respiratory: Yes: Regular, CTA Bilaterally. No: Accessory Muscle Use, Bradypnea Gastrointestinal: Yes: Normal Bowel Sounds, Soft. No: Abdomen, Obese, Ascites, Palpable Mass, Tenderness Renal/: No: Anuria, Bladder Distention Musculoskeletal: Yes: WNL Extremities: No: Amputation, Calf Tenderness, Cold Edema: No Peripheral Pulses WNL: No Integumentary: Yes: Rash (dERMATOMAL RASH -ERYTHEMA WITH NECROTIC BLISTERS ON LEFT BUTTOCK TO LEFT THIGH , PUBIS, LABIA MAJORA.). No: Bruising Psychiatric: Yes: Alert, Oriented. No: Agitated, Suicidal Ideation Labs: CBC, BMP 04/03/18 18:55 04/03/18 18:55 Laboratory Results - last 24 hr 04/03/18 04/03/18 18:55 18:55 WBC 3.9 L D RBC 4.40 Hgb 13.3 Hct 40.2 MCV 91.5 MCH 30.3 MCHC 33.1 RDW 13.2 Plt Count 150 D MPV 7.3 L Neutrophils % 63.5 Lymphocytes % 23.9 D Monocytes % 11.8 H Eosinophils % 0.1 D Basophils % 0.7 Nucleated RBC % 0 Sodium 136 Potassium 3.8 Chloride 99 Carbon Dioxide 30 Anion Gap 7 L BUN 8 Creatinine 0.6 Creat Clearance w eGFR > 60 Random Glucose 106 Calcium 8.3 L Total Bilirubin 0.4 AST 19 ALT 18 Alkaline Phosphatase 66 Total Protein 6.3 L Albumin 3.3 L Problem List - Problems (1) Shingles rash Assessment/Plan: pT IS VOMITING AND UNABLE TO TOLERATE po ANTI VIRALS. dISCUSSED WITH id AND WILL START ACYCLOVIR IV Code(s): B02.9 - ZOSTER WITHOUT COMPLICATIONS Qualifiers: Herpes zoster complications: disseminated zoster Qualified Code(s): B02.7 - Disseminated zoster (2) Severe lt inguinal pain Assessment/Plan: cONTINUE nEURONTIN tid, LIDODERM. IV MS PRN Code(s): R10.30 - LOWER ABDOMINAL PAIN, UNSPECIFIED (3) Vomiting Assessment/Plan: WILL CONTINUE IV FLUIDS, ODANSENTRON. WILL START THE DIET WHEN TOLERATES Code(s): R11.10 - VOMITING, UNSPECIFIED Qualifiers: Vomiting Intractability: intractable Nausea presence: with nausea
[2018-04-03] MEDS ORDERED: MAG HYDROX/AL HYDROX/SIMETH 30 ML UNIT-DOSE CUP ONE (20:09)
[2018-04-03] MEDS ORDERED: ONDANSETRON 4 MG/2 ML VIAL ONE (20:09)
[2018-04-03 20:10] LABS: URINE APPEARANCE CLEAR; URINE BILIRUBIN NEGATIVE (<2.0 mg/dL); URINE COLOR YELLOW; URINE GLUCOSE (UA) NEGATIVE (NEGATIVE); URINE KETONE 1+ (NEGATIVE); URINE LEUK ESTERASE 2+ (NEGATIVE); URINE NITRITE NEGATIVE (NEGATIVE); URINE PROTEIN NEGATIVE (NEGATIVE); URINE UROBILINOGEN NEGATIVE mg/dL (0.2-1.0)
[2018-04-03] MEDS ORDERED: LIDOCAINE 5% TOPICAL PATCH TP ONE (20:15)
[2018-04-03 20:16] LABS: EPI CELLS RARE /HPF (FEW); URINE MUCUS RARE
[2018-04-03] MEDS ORDERED: morphine CARPU-JECT 2 MG/1 ML DISP.SYRIN ONE (20:16)
[2018-04-03] MEDS ORDERED: LIDOCAINE PATCH REMOVAL MC ONE (22:00)
[2018-04-03] MEDS ORDERED: GABAPENTIN 300 MG CAPSULE (FP) PO SCH (22:00)
[2018-04-03] MEDS: GABAPENTIN 300 MG CAPSULE (FP) PO SCH (23:00)
[2018-04-03] MEDS ORDERED: GABAPENTIN 100 MG CAPSULE (FP) ONE (23:55)
[2018-04-03] MEDS ORDERED: LIDOCAINE 5% TOPICAL PATCH ONE (23:55)
[2018-04-04] MEDS: GABAPENTIN 300 MG CAPSULE (FP) PO SCH (07:17)
[2018-04-04] MEDS ORDERED: GABAPENTIN 100 MG CAPSULE (FP) ONE (07:19)
--- NOTE | 2018-04-04 08:36 | PN ---
Progress Note (short form) - Note Progress Note: N/V improved. Able to tolerate PO Wants to go home. Vital Signs (72 hours) 04/03/18 04/04/18 17:15 00:43 Temperature 99.0 F Pulse Rate 78 Respiratory 18 Rate Blood Pressure 101/61 O2 Sat by Pulse 97 97 Oximetry (%) Lungs clear Heart S1S2 regular Abdo,en soft, NT Left thigh/buttock/labia rash c/w H.Zoster Laboratory Results - last 24 hr 04/03/18 04/03/18 04/03/18 18:55 18:55 19:27 WBC 3.9 L D RBC 4.40 Hgb 13.3 Hct 40.2 MCV 91.5 MCH 30.3 MCHC 33.1 RDW 13.2 Plt Count 150 D MPV 7.3 L Neutrophils % 63.5 Lymphocytes % 23.9 D Monocytes % 11.8 H Eosinophils % 0.1 D Basophils % 0.7 Nucleated RBC % 0 Sodium 136 Potassium 3.8 Chloride 99 Carbon Dioxide 30 Anion Gap 7 L BUN 8 Creatinine 0.6 Creat Clearance w eGFR > 60 Random Glucose 106 Calcium 8.3 L Total Bilirubin 0.4 AST 19 ALT 18 Alkaline Phosphatase 66 Total Protein 6.3 L Albumin 3.3 L Urine Color Yellow Urine Appearance Clear Urine pH 5.0 Ur Specific [place] 1.015 Urine Protein Negative Urine Glucose (UA) Negative Urine Ketones 1+ H Urine Blood 1+ H Urine Nitrite Negative Urine Bilirubin Negative Urine Urobilinogen Negative Ur Leukocyte Esterase 2+ H Urine WBC (Auto) 21 Urine RBC (Auto) 8 Ur Epithelial Cells Rare Urine Mucus Rare Current Active Problems Problem Status Onset Severe lt inguinal pain Acute Shingles rash Acute Vomiting Acute Plan D/C home on Neurontin and Valtex PO F/U in the office. Problem List - Problems (1) Shingles rash Code(s): B02.9 - ZOSTER WITHOUT COMPLICATIONS Qualifiers: Herpes zoster complications: disseminated zoster Qualified Code(s): B02.7 - Disseminated zoster (2) Severe lt inguinal pain Code(s): R10.30 - LOWER ABDOMINAL PAIN, UNSPECIFIED (3) Vomiting Code(s): R11.10 - VOMITING, UNSPECIFIED Qualifiers: Vomiting Intractability: intractable Nausea presence: with nausea
--- NOTE | 2018-04-04 08:48 | DS ---
Physical Examination Vital Signs: Vital Signs Temperature 99.0 F 04/03/18 17:15 Pulse Rate 78 04/03/18 17:15 Respiratory Rate 18 04/03/18 17:15 Blood Pressure 101/61 04/03/18 17:15 O2 Sat by Pulse Oximetry (%) 97 04/04/18 00:43 Constitutional: Yes: Anxious, Moderate Distress Eyes: Yes: Conjunctiva Clear, EOM Intact HENT: Yes: Atraumatic, Normocephalic Neck: Yes: Supple, Trachea Midline Cardiovascular: Yes: Regular Rate and Rhythm. No: Bradycardia Respiratory: Yes: Regular, CTA Bilaterally Gastrointestinal: Yes: Normal Bowel Sounds, Soft. No: Abdomen, Obese ...Rectal Exam: Yes: Deferred Renal/: No: Anuria, Bladder Distention Breast(s): Yes: WNL Musculoskeletal: Yes: WNL Extremities: No: Calf Tenderness Edema: No Integumentary: Yes: Rash (Shingles left thigh) ...Motor Strength: WNL Psychiatric: Yes: WNL Labs: CBC, BMP 04/03/18 18:55 04/03/18 18:55 Discharge Summary Reason For Visit: HERPES ZOSTER Current Active Problems Severe lt inguinal pain (Acute) Shingles rash (Acute) Vomiting (Acute) Condition: Improved - Instructions Referrals: William Gil MD [Primary Care Provider] - Disposition: HOME - Home Medications Comprehensive Discharge Medication List: Ambulatory Orders Gabapentin [Neurontin] 300 mg PO BID 02/14/14 Ascorbate Calcium [Vitamin C] 500 mg PO DAILY 09/02/16 Calcium Carb/Magnesium Ox,Carb [Sonu-Mag Tablet Chewable] 1 each PO DAILY Cholecalciferol (Vitamin D3) [Vitamin D -] 400 unit PO DAILY 09/02/16 Multivitamins [Multivit ([facility] Formulary)] 1 tab PO DAILY 09/02/16 Mag Hydrox/Al Hydrox/Simeth [Mylanta Oral Suspension -] 30 ml PO ONCE PRN Mag Carb/Aluminum Hydrox/Algin [Gaviscon Liquid] 355 ml PO Q4H PRN #0 oral.susp 10/20/17 Pantoprazole Sodium [Protonix -] 40 mg PO DAILY #30 tablet.ec 10/20/17 Pantoprazole Sodium 40 mg PO DAILY #90 tablet. 10/23/17
[2018-04-04 09:00] LABS: HEMATOCRIT 39.4 % (32.4-45.2); HEMOGLOBIN 13.2 GM/dL (10.7-15.3); MCH 30.6 pg (25.7-33.7); MCHC 33.6 g/dl (32.0-36.0); MEAN PLT VOLUME 7.7 fl (7.5-11.1); PLATELET COUNT 150 K/MM3 (134-434); RBC 4.33 M/mm3 (3.60-5.2); RDW 13.2 % (11.6-15.6); WHITE BLOOD COUNT 4.7 K/mm3 (4.0-10.0)
[2018-04-04 09:29] LABS: ALBUMIN 3.1 g/dl (3.4-5.0); ANION GAP 9 (8-16); BLOOD UREA NITROGEN 8 mg/dL (7-18); CALCIUM 8.1 mg/dL (8.5-10.1); CHLORIDE 104 mmol/L (98-107); CO2 26 mmol/L (21-32); GLUCOSE,RANDOM 89 mg/dL (74-106); MAGNESIUM 2.1 mg/dL (1.8-2.4); POTASSIUM 3.9 mmol/L (3.5-5.1); SODIUM 139 mmol/L (136-145)
[2018-04-04 09:33] LABS: ALK PHOS 60 U/L (45-117); BILIRUBIN,TOTAL 0.5 mg/dL (0.2-1.0); CREATININE 0.6 mg/dL (0.55-1.02); PHOSPHOROUS 2.5 mg/dL (2.5-4.9); SGOT/AST 22 U/L (15-37); SGPT/ALT 18 U/L (12-78); TOT PROT 6.1 g/dl (6.4-8.2)
[2018-04-04] MEDS ORDERED: POLYETHYLENE GLYCOL 3350 119 GM BTL PO SCH (10:00)
[2018-04-04 11:06] VITALS: BP 107/64; PULSE 74; TEMP 97.7
--- NOTE | 2018-04-04 14:22 | EKG ---
Test Reason : Blood Pressure : / mmHG Vent. Rate : 074 BPM Atrial Rate : 074 BPM P-R Int : 146 ms QRS Dur : 098 ms QT Int : 454 ms P-R-T Axes : 068 059 060 degrees QTc Int : 503 ms NORMAL SINUS RHYTHM POSSIBLE LEFT ATRIAL ENLARGEMENT INCOMPLETE RIGHT BUNDLE BRANCH BLOCK NONSPECIFIC T WAVE ABNORMALITY ABNORMAL ECG WHEN COMPARED WITH ECG OF 11-AUG-2017 16:36, QT HAS LENGTHENED Confirmed by SOPHIA MILIAN, CHILO ([id number]) on 04/04/2018 2:22:04 PM Referred By: Confirmed By:CHILO CORTES MD
== END 2018-04-04 09:22 | disposition home or self-care (01) | DRG 866 ==
LOC: JER 17:07 → JERFT 17:07 → JERBED 23:19
PROVIDERS: ADMIT Internal Medicine; ATTEND Internal Medicine
DX: B02.7 Disseminated zoster (principal); Z87.891 Personal history of nicotine dependence; E53.8 Deficiency of other specified B group vitamins; R10.30 Lower abdominal pain, unspecified; R11.2 Nausea with vomiting, unspecified
CPT/HCPCS: 36415; 71046-TC-FY; 80053; 81003; 81015; 83735; 84100; 85025; 85027; 87086; 93005; 93010; 99283-25; J7030

== ENCOUNTER 2018-04-06 23:25 | Emergency (ER) | payer OTHER, BC ==
[2018-04-07 00:29] VITALS: BP 121/78; PULSE 69; TEMP 97.7; BMI 21.7
--- NOTE | 2018-04-07 00:50 | PDOC ---
History of Present Illness - General Chief Complaint: Rash Stated Complaint: SHINGLES Time Seen by Provider: 04/07/18 00:43 Past History - Past Medical History Allergies/Adverse Reactions: Allergies Allergy/AdvReac Type Severity Reaction Status Date / Time No Known Allergies Allergy Verified 04/07/18 00:29 Home Medications: Ambulatory Orders Ascorbate Calcium [Vitamin C] 500 mg PO DAILY 09/02/16 Calcium Carb/Magnesium Ox,Carb [Sonu-Mag Tablet Chewable] 1 each PO DAILY Cholecalciferol (Vitamin D3) [Vitamin D -] 400 unit PO DAILY 09/02/16 Multivitamins [Multivit ([facility] Formulary)] 1 tab PO DAILY 09/02/16 Mag Hydrox/Al Hydrox/Simeth [Mylanta Oral Suspension -] 30 ml PO ONCE PRN Mag Carb/Aluminum Hydrox/Algin [Gaviscon Liquid] 355 ml PO Q4H PRN #0 oral.susp 10/20/17 Pantoprazole Sodium [Protonix -] 40 mg PO DAILY #30 tablet.ec 10/20/17 Pantoprazole Sodium 40 mg PO DAILY #90 tablet.dr 10/23/17 Gabapentin [Neurontin -] 300 mg PO TID capsule 04/04/18 Valacyclovir HCl [Valtrex] 1,000 mg PO TID #20 tablet 04/04/18 Anemia: (VITAMIN B12 DEFICIENCY) Asthma: No Cancer: No Cardiac Disorders: No CVA: No COPD: Yes (CHRONIC BRONCHITIS;PNEUMONIA) CHF: No Dementia: No Diabetes: No GI Disorders: Yes (COLON ADENOMAS;DIVERTICULOSIS) Disorders: No HTN: No Hypercholesterolemia: No Liver Disease: No Seizures: No Thyroid Disease: No - Surgical History Abdominal Surgery: No Appendectomy: No Cardiac Surgery: No Cholecystectomy: No Lung Surgery: No Neurologic Surgery: No Orthopedic Surgery: Yes (RIGHT KNEE SURGERY 2001) - Suicide/Smoking/Psychosocial Hx Smoking History: Never smoked Have you smoked in the past 12 months: No If you are a former smoker, when did you quit?: 1972 Information on smoking cessation initiated: No Hx Alcohol Use: No Drug/Substance Use Hx: No Substance Use Type: None Hx Substance Use Treatment: No *Physical Exam - Vital Signs Last Vital Signs Temp Pulse Resp BP Pulse Ox 97.7 F 69 18 121/78 98 04/07/18 00:27 04/07/18 00:27 04/07/18 00:27 04/07/18 00:27 04/07/18 00:27 Medical Decision Making - Medical Decision Making 04/07/18 00:54 78-year-old female with recently diagnosed shingles on Valtrex presents emergency Department with worsening pain secondary to shingles. Vitals unremarkable. Exam consistent with shingles in the S2 distribution. Since patient has not taken any medication for pain control, will attempt to control pain with NSAIDs and percocet and reassess. 04/07/18 02:16 Pt refusing to take percocet or naproxen and would prefer a prescription as she wants to drive home. Will prescribe naproxen with percocet for break through pain. Pt feels well, is well appearing. I discussed the physical exam findings, ancillary test results and final diagnoses with the patient. I answered all of the patient's questions. The patient was satisfied with the care received and felt comfortable with the discharge plan and treatment plan. The patient will call their primary care physician within 24 hours to arrange follow-up and will return to the Emergency Department with any new, persistent or worsening symptoms. *DC/Admit/Observation/Transfer Diagnosis at time of Disposition: Shingles rash - Discharge Dispostion Disposition: HOME Condition at time of disposition: Stable Decision to Admit order: No - Referrals Referrals: William Gil MD [Primary Care Provider] - - Patient Instructions Printed Discharge Instructions: DI for Shingles Additional Instructions: Follow up with Dr. Gil early next week. For pain: 1) Take naproxen twice a day as needed for pain. Take this medication with plenty of food and water. 2) If naproxen is not adequately controlling your pain, take percocet. Do not drive if you are taking percocet as it can make you dizzy or drowsy. Return to the emergency department if you have any new, worsening, or concerning symptoms. - Post Discharge Activity - Attestations Physician Attestion: 04/07/18 02:21 I, Dr. Tamica Molina MD, attest that this document has been prepared under my direction and personally reviewed by me in its entirety. I further attest, that it accurately reflects all work, treatment, procedures and medical decision -making performed by me.
[2018-04-07] MEDS ORDERED: NAPROXEN 500 MG TABLET (FP) PO ONE (00:57)
[2018-04-07] MEDS ORDERED: NAPROXEN 500 MG TABLET (FP) ONE (02:04)
== END 2018-04-07 02:44 | disposition home or self-care (01) ==
LOC: JER 23:25
DX: B02.9 Zoster without complications (principal); E53.8 Deficiency of other specified B group vitamins; Z87.19 Personal history of other diseases of the digestive system; Z87.09 Personal history of other diseases of the respiratory system
CPT/HCPCS: 99281-25

== ENCOUNTER 2018-04-12 09:24 | Emergency (ER) | payer OTHER, BC ==
[2018-04-12 09:32] VITALS: BP 133/74; PULSE 75; TEMP 98.6; BMI 23.6
--- NOTE | 2018-04-12 10:20 | PDOC ---
History of Present Illness - General Chief Complaint: Rash Stated Complaint: SHINGLES,PAINFULL,RASH Time Seen by Provider: 04/12/18 09:41 History Source: Patient Exam Limitations: No Limitations - History of Present Illness Initial Comments: 04/12/18 10:16 Pt. is a 78 y/o F recently treated for shingles to the vaginal region in our ED , who presents to the ED c/o worsening pain and inability to sleep. Pt. was seen on 04/07/18 and prescribed percocet and naproxyn for pain. Pt states that she still feels a stabbing sensation in her vaginal area. She states that she felt nauseous this morning and was unable to take any of her medications. She also states that she does not want to take the percocet given to her as she is "bound up". 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 Past History - Travel Traveled outside of the country in the last 30 days: No Close contact w/someone who was outside of country & ill: No - Past Medical History Allergies/Adverse Reactions: Allergies Allergy/AdvReac Type Severity Reaction Status Date / Time No Known Allergies Allergy Verified 04/12/18 09:27 Home Medications: Ambulatory Orders Pantoprazole Sodium [Protonix -] 40 mg PO DAILY #30 tablet.ec 10/20/17 Pantoprazole Sodium 40 mg PO DAILY #90 tablet. 10/23/17 Gabapentin [Neurontin -] 300 mg PO TID capsule 04/04/18 Oxycodone HCl/Acetaminophen [Percocet 5-325 mg Tablet] 1 tab PO BID PRN #8 tablet MDD 2 tabs 04/07/18 Lidocaine 4% Cream - 1 applic TP BID #60 g 04/12/18 Oxycodone HCl/Acetaminophen [Percocet 5-325 mg Tablet] 1 tab PO BID #5 tablet MDD 2 04/12/18 Valacyclovir HCl [Valtrex] 1,000 PO ASDIR 04/12/18 Anemia: (VITAMIN B12 DEFICIENCY) Asthma: No Cancer: No Cardiac Disorders: No CVA: No COPD: Yes (CHRONIC BRONCHITIS;PNEUMONIA) CHF: No DVT: No Dementia: No Diabetes: No GI Disorders: Yes (COLON ADENOMAS;DIVERTICULOSIS) Disorders: No HTN: No Hypercholesterolemia: No Liver Disease: No Seizures: No Thyroid Disease: No - Surgical History Abdominal Surgery: No Appendectomy: No Cardiac Surgery: No Cholecystectomy: No Lung Surgery: No Neurologic Surgery: No Orthopedic Surgery: Yes (RIGHT KNEE SURGERY 2002) - Suicide/Smoking/Psychosocial Hx Smoking History: Never smoked Have you smoked in the past 12 months: No If you are a former smoker, when did you quit?: 1972 Information on smoking cessation initiated: No Hx Alcohol Use: No Drug/Substance Use Hx: No Substance Use Type: None Hx Substance Use Treatment: No Review of Systems - Review of Systems Able to Perform ROS?: Yes Comments:: 04/12/18 10:14 CONSTITUTIONAL: Absent: fever, chills, diaphoresis, generalized weakness, malaise, loss of appetite HEENT: Absent: rhinorrhea, nasal congestion, throat pain, throat swelling, difficulty swallowing, mouth swelling, ear pain, eye pain, visual Changes CARDIOVASCULAR: Absent: chest pain, loss of consciousness, palpitations, irregular heart rate, peripheral edema RESPIRATORY: Absent: cough, shortness of breath, dyspnea with exertion, orthopnea, wheezing, stridor, hemoptysis GASTROINTESTINAL: Absent: abdominal pain, abdominal distension, nausea, vomiting, diarrhea, constipation, melena, hematochezia GENITOURINARY: Absent: dysuria, frequency, urgency, hesitancy, hematuria, flank pain, genital pain MUSCULOSKELETAL: Absent: myalgia, arthralgia, joint swelling SKIN: Absent: rash, itching, pallor HEMATOLOGIC/IMMUNOLOGIC: Absent: easy bleeding, easy bruising, lymphadenopathy, frequent infections ENDOCRINE: Absent: unexplained weight gain, unexplained weight loss, heat intolerance, cold intolerance NEUROLOGIC: Absent: headache, focal weakness or paresthesias, dizziness, unsteady gait, seizure, mental status changes, bladder or bowel incontinence PSYCHIATRIC: Absent: anxiety, depression, suicidal or homicidal ideation, hallucinations. Is the patient limited Mal[place]ian proficient: No *Physical Exam - Vital Signs Last Vital Signs Temp Pulse Resp BP Pulse Ox 98.6 F 75 18 133/74 100 04/12/18 09:29 04/12/18 09:29 04/12/18 09:29 04/12/18 09:29 04/12/18 09:29 - Physical Exam Comments: 04/12/18 10:16 GENERAL: Well developed, well nourished. Awake and alert. No acute distress. HEENT: Normocephalic, atraumatic. PERRLA, EOMI. No conjunctival pallor. Sclera are non- icteric. Moist mucous membranes. Oropharynx is clear. NECK: Supple. Full ROM. No JVD. Carotid pulses 2+ and symmetric, without bruits. No thyromegaly. No lymphadenopathy. CARDIOVASCULAR: Regular rate and rhythm. No murmurs, rubs, or gallops. Distal pulses are 2+ and symmetric. PULMONARY: No evidence of respiratory distress. Lungs clear to auscultation bilaterally. No wheezing, rales or rhonchi. ABDOMINAL: Soft. Non-tender. Non-distended. No rebound or guarding. No organomegaly. Normoactive bowel sounds. MUSCULOSKELETAL Normal range of motion at all joints. No bony deformities or tenderness. No CVA tenderness. EXTREMITIES: No cyanosis. No clubbing. No edema. No calf tenderness. SKIN: Warm and dry. Normal capillary refill. No rashes. No jaundice. NEUROLOGICAL: Alert, awake, appropriate. Cranial nerves 2-12 intact. No deficits to light touch and temperature in face, upper extremities and lower extremities. No motor deficits in the in face, upper extremities and lower extremities. Normoreflexic in the upper and lower extremities. Normal speech. Toes are down- going bilaterally. Gait is normal without ataxia. PSYCHIATRIC: Cooperative. Good eye contact. Appropriate mood and affect. *DC/Admit/Observation/Transfer Diagnosis at time of Disposition: Shingles rash Qualifiers: Herpes zoster complications: without complications Qualified Code(s): B02.9 - Zoster without complications - Discharge Dispostion Disposition: HOME Condition at time of disposition: Stable Decision to Admit order: No - Prescriptions Prescriptions: Lidocaine 4% Cream - 1 applic TP BID #60 g Oxycodone HCl/Acetaminophen [Percocet 5-325 mg Tablet] 1 tab PO BID #5 tablet MDD 2 - Referrals Referrals: William Gil MD [Primary Care Provider] - - Patient Instructions Printed Discharge Instructions: DI for Shingles Additional Instructions: You have shingles which is causing your nerve pain. Take the Zofran (Ondansetron) every 4 hours as needed for nausea. You may take this in the morning before your pills. After you take the Zofran wait half an hour before eating or taking anything. Please finish taking the Valtrex (Valacyclovir). Take this three times a day until you run out of medication. Take the percocet every 12 hours as needed for break through pain. Stop taking the tramadol. You may take the naproxen as previously prescribed to you twice a day. Use the lidocaine cream as directed to help with the pain Please take the colace and ducalax three times a day to help with constipation Follow up with Dr. Gil tomorrow. Return to the ED if you have worsening pain, fevers, or have any changes in your symptoms. - Post Discharge Activity
[2018-04-12] MEDS ORDERED: NAPROXEN 500 MG TABLET (FP) PO ONE (12:10)
[2018-04-12] MEDS ORDERED: DOCUSATE SODIUM 100 MG CAPSULE (FP) PO ONE ×2 (12:10→12:21)
[2018-04-12] MEDS ORDERED: NAPROXEN 500 MG TABLET (FP) ONE (12:20)
== END 2018-04-12 12:25 | disposition home or self-care (01) ==
LOC: JERFT 09:24
DX: B02.9 Zoster without complications (principal); E53.9 Vitamin B deficiency, unspecified; Z87.09 Personal history of other diseases of the respiratory system; Z87.19 Personal history of other diseases of the digestive system
CPT/HCPCS: 99281-25

== ENCOUNTER 2023-06-12 20:33 | Emergency (ER) | payer OTHER, BC ==
[2023-06-12 20:50] VITALS: BP 90/47; PULSE 73; RESP 16; TEMP 98.1; BMI 18.5
[2023-06-13 01:02] LABS: BASO % 0.5 % (0-2.0); EOS % 1.2 % (0-4.5); HEMOGLOBIN 12.1 GM/dL (10.7-15.3); LYMPH % 37.1 % (8-40); MCH 30.9 pg (25.7-33.7); MCHC 32.7 g/dl (32.0-36.0); MEAN CELL VOLUME 94.7 fl (80-96); MONO % 11.6 % (3.8-10.2); NEUT % 49.6 % (42.8-82.8); PLATELET COUNT 218 10^3/uL (134-434); RBC 3.91 M/mm3 (3.60-5.2); RDW 13.3 % (11.6-15.6); WHITE BLOOD COUNT 6.2 K/mm3 (4.0-10.0)
[2023-06-13 01:28] LABS: POTASSIUM 3.8 mmol/L (3.5-5.1)
[2023-06-13 01:31] LABS: CALCIUM 8.4 mg/dL (8.5-10.1)
[2023-06-13 01:32] LABS: ALBUMIN 3.3 g/dl (3.4-5.0); BLOOD UREA NITROGEN 14.6 mg/dL (7-18)
[2023-06-13 01:35] LABS: CREATININE 0.5 mg/dL (0.55-1.3)
[2023-06-13 01:37] LABS: BILIRUBIN,TOTAL 0.5 mg/dL (0.2-1); TOT PROT 6.2 g/dl (6.4-8.2)
[2023-06-13 02:03] LABS: INR 1.03 (0.83-1.09)
== END 2023-06-13 03:59 | disposition home or self-care (01) ==
LOC: JER 20:33
DX: M79.604 Pain in right leg (principal); M25.512 Pain in left shoulder; M25.511 Pain in right shoulder; S80.11XA Contusion of right lower leg, initial encounter; S90.32XA Contusion of left foot, initial encounter; W01.0XXA Fall on same level from slipping, tripping and stumbling without subsequent striking against object, initial encounter
CPT/HCPCS: 36415; 70450-TC; 71045-TC-FY; 72125-TC; 72170-TC-FY; 73030-TC-LT-FY; 73610-TC-RT-FY; 73630-TC-RT-FY; 80053; 85025; 85610; 85730; 93005; 93010; 99285-25

== ENCOUNTER 2023-10-09 10:40 | Inpatient (IN) | payer OTHER, BC ==
[2023-10-09 15:30] LABS: BASO % 0.3 % (0-2.0); EOS % 0.4 % (0-4.5); HEMATOCRIT 41.7 % (32.4-45.2); HEMOGLOBIN 13.7 GM/dL (10.7-15.3); LYMPH % 34.8 % (8-40); MCH 31.1 pg (25.7-33.7); MCHC 32.8 g/dl (32.0-36.0); MEAN CELL VOLUME 94.9 fl (80-96); MEAN PLT VOLUME 7.6 fl (7.5-11.1); MONO % 7.4 % (3.8-10.2); NEUT % 57.1 % (42.8-82.8); PLATELET COUNT 215 10^3/uL (134-434); RBC 4.39 M/mm3 (3.60-5.2); RDW 13.3 % (11.6-15.6); URINE APPEARANCE CLEAR; URINE BILIRUBIN NEGATIVE (NEGATIVE); URINE COLOR YELLOW; URINE GLUCOSE (UA) NEGATIVE (NEGATIVE); URINE KETONE TRACE (NEGATIVE); URINE LEUK ESTERASE NEGATIVE (NEGATIVE); URINE NITRITE NEGATIVE (NEGATIVE); URINE PROTEIN NEGATIVE (NEGATIVE); URINE UROBILINOGEN 0.2 mg/dL (0.2-1.0); WHITE BLOOD COUNT 8.1 K/mm3 (4.0-10.0)
[2023-10-09 15:36] LABS: INR 0.99 (0.83-1.09); PROTHROMBIN TIME (PATIENT) 11.5 SEC (9.7-13.0)
[2023-10-09 15:39] LABS: ACTIVATED PTT 26.9 SECONDS (25.2-36.5)
[2023-10-09 15:56] LABS: CHLORIDE 104 mmol/L (98-107); SODIUM 137 mmol/L (136-145)
[2023-10-09 15:58] LABS: CALCIUM 8.9 mg/dL (8.5-10.1)
[2023-10-09 15:59] LABS: ALBUMIN 3.5 g/dl (3.4-5.0); BLOOD UREA NITROGEN 13.7 mg/dL (7-18); CO2 28 mmol/L (21-32); GLUCOSE,RANDOM 73 mg/dL (74-106); MAGNESIUM 2.5 mg/dL (1.8-2.4)
[2023-10-09 16:02] LABS: CREATININE 0.6 mg/dL (0.55-1.3); SGOT/AST 49 U/L (15-37); SGPT/ALT 21 U/L (13-61)
[2023-10-09 16:03] LABS: TOT PROT 6.9 g/dl (6.4-8.2)
[2023-10-09 16:04] LABS: BILIRUBIN,TOTAL 0.8 mg/dL (0.2-1)
[2023-10-09 16:05] LABS: ALK PHOS 61 U/L (45-117)
[2023-10-09 16:07] LABS: N-TERMINAL BNP 134.3 pg/ml (5-450)
[2023-10-09 16:29] LABS: ANION GAP 6 mmol/L (4-13); POTASSIUM 6.1 mmol/L (3.5-5.1)
[2023-10-09] MEDS ORDERED: GABAPENTIN 300 MG CAPSULE PO PRN (19:00)
[2023-10-09 20:26] LABS: POTASSIUM 3.6 mmol/L (3.5-5.1)
[2023-10-09 20:27] LABS: CALCIUM 8.4 mg/dL (8.5-10.1)
[2023-10-09 20:28] LABS: BLOOD UREA NITROGEN 13.7 mg/dL (7-18)
[2023-10-09 20:32] LABS: CREATININE 0.7 mg/dL (0.55-1.3)
[2023-10-09 20:44] VITALS: BMI 17.7
[2023-10-09] MEDS ORDERED: LIDOCAINE TP SCH (22:00)
[2023-10-10] MEDS ORDERED: PANTOPRAZOLE 40 MG TABLET PO SCH (10:00)
[2023-10-10 10:18] VITALS: PULSE 69; RESP 16
[2023-10-10 15:48] VITALS: BP 109/66; TEMP 98.2
== END 2023-10-10 14:36 | disposition left against medical advice (07) | DRG 312 ==
LOC: JER 10:40 → JERBED 17:10 → J4W 19:03 → OBSVTOIN 10-10 11:07
PROVIDERS: ADMIT Internal Medicine; ATTEND Internal Medicine
DX: R55 Syncope and collapse (principal); G30.9 Alzheimer's disease, unspecified; M19.90 Unspecified osteoarthritis, unspecified site; R58 Hemorrhage, not elsewhere classified; F02.80 Dementia in other diseases classified elsewhere, unspecified severity, without behavioral disturbance, psychotic disturbance, mood disturbance, and anxiety
CPT/HCPCS: 0241U-QW; 36415; 70450-TC; 71045-TC-FY; 72125-TC; 73030-TC-RT-FY; 73060-TC-RT-FY; 80048; 80053; 81003; 82550; 82553; 83735; 83880; 84443; 84484; 85025; 85610; 85730; 86480; 87086; 93005; 93010; 93306-TC; 93880-TC; 97116-GP; 97161-GP; 99285-25; G0378